=== PATIENT | female | born 1975 | race Caucasian/White ===

== ENCOUNTER 2024-08-03 13:37 | Inpatient (IN) | payer BC, SELFPAY ==
[2024-08-03] VITALS (9 sets, daily range): BP systolic 98–144; BP diastolic 63–96; BMI 33.9
[2024-08-03 08:12] LABS: % Basophils 0.1 % (0-2); % Immature Granulocytes 0.4 % (0-0.5); % Lymphocytes 9.3 % (20.5-51.1); % Monocytes 3.9 % (1.7-9.3); % Neutrophils 86.3 % (42.2-75.2); Absolute Monocytes 0.4 10^3/uL (0.1-0.6); Absolute Neutrophils 9.7 10^3/uL (1.4-6.5); Hematocrit 40.7 % (37.0-47.0); Hemoglobin 12.9 g/dL (12.0-16.0); Mean Corp Hgb Conc. 31.7 g/dL (33.0-37.0); Mean Corpuscular Hgb 26.4 pg (27.0-31.0); Mean Corpuscular Volume 83.2 fL (81.0-99.0); Mean Platelet Volume 12.1 fL (7.4-10.4); Nucleated Red Blood Cells % 0 %; Platelet Count 259 10^3/uL (130-400); Red Blood Cell Count 4.89 10^6/uL (4.20-5.40); Red Cell Dist. Width 14.9 % (11.5-14.5); White Blood Cell Count 11.2 10^3/uL (4.8-10.8)
[2024-08-03 08:20] LABS: HCG, Serum Qualitative Screen Negative
[2024-08-03 08:23] LABS: ALT (SGPT) 22 U/L (0-35); AST (SGOT) 25 U/L (14-36); Alkaline Phosphatase 85 U/L (38-126); Blood Urea Nitrogen 14 mg/dl (7-17); Calcium 10.1 mg/dl (8.4-10.2); Carbon Dioxide 23 mmol/L (22-30); Chloride 105 mmol/L (98-107); Glucose 134 mg/dl (70-99); Lipase 124 U/L (23-300); Potassium 4.2 mmol/L (3.5-5.1); Sodium 142 mmol/L (135-145); Total Bilirubin 0.7 mg/dl (0.2-1.3); Total Protein 8.2 g/dl (6.3-8.2); eGFR > 60.00
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
[2024-08-03] MEDS: NSS 1000 IV ×2 (10:47→17:24)
[2024-08-03] MEDS: MAALOX 40 PO (10:54)
[2024-08-03] MEDS: ZOFRAN 4 MG IV (10:54)
[2024-08-03 11:20] LABS: Urine Albumin 1+ (Neg - Trace); Urine Bilirubin 1+ (Negative); Urine Character Clear (Clear); Urine Color Amber; Urine Glucose Negative (Negative); Urine Ketone 2+ (Negative); Urine Leukocyte Trace (Negative); Urine Nitrite Negative (Negative); Urine Occult Blood Negative (Negative); Urine Specific Gravity 1.015 (<1.030); Urine Urobilinogen 3+ (Neg - 1+); Urine pH 6.5 (5.0-9.0)
[2024-08-03 11:37] LABS: Urine Mucus Moderate
[2024-08-03 11:38] LABS: Urine Bacteria Few (Negative); Urine Red Blood Cell 0-2 /HPF (0-2)
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
[2024-08-03] MEDS: HEPARIN 5000 UNITS SC (20:18)
[2024-08-04] MEDS: NSS 1000 IV (02:51)
[2024-08-04 07:00] VITALS: BP 97/62
[2024-08-04] MEDS: NSS (PRESERVATIVE FREE) 10 ML IV (07:47)
[2024-08-04] MEDS: PROTONIX IV 40 MG IV (07:48)
[2024-08-04] MEDS: HEPARIN 5000 UNITS SC (07:48)
[2024-08-04 09:03] LABS: % Basophils 0.3 % (0-2); % Eosinophils 0.9 % (0-6); % Immature Granulocytes 0.2 % (0-0.5); % Lymphocytes 34.5 % (20.5-51.1); % Neutrophils 57.1 % (42.2-75.2); Absolute Eosinophils 0.1 10^3/uL (0-0.7); Absolute Monocytes 0.4 10^3/uL (0.1-0.6); Absolute Neutrophils 3.3 10^3/uL (1.4-6.5); Hematocrit 33.3 % (37.0-47.0); Hemoglobin 10.6 g/dL (12.0-16.0); Mean Corp Hgb Conc. 31.8 g/dL (33.0-37.0); Mean Corpuscular Volume 84.7 fL (81.0-99.0); Mean Platelet Volume 12.4 fL (7.4-10.4); Nucleated Red Blood Cells % 0 %; Platelet Count 184 10^3/uL (130-400); Red Blood Cell Count 3.93 10^6/uL (4.20-5.40); White Blood Cell Count 5.8 10^3/uL (4.8-10.8)
[2024-08-04 09:56] LABS: ALT (SGPT) 18 U/L (0-35); AST (SGOT) 23 U/L (14-36); Albumin 3.8 g/dl (3.5-5.0); Alkaline Phosphatase 63 U/L (38-126); Blood Urea Nitrogen 17 mg/dl (7-17); Calcium 8.5 mg/dl (8.4-10.2); Carbon Dioxide 19 mmol/L (22-30); Chloride 111 mmol/L (98-107); Estimated Creatinine Clearance 98 ml/min; Glucose 88 mg/dl (70-99); Potassium 3.9 mmol/L (3.5-5.1); Sodium 144 mmol/L (135-145); Total Bilirubin 0.7 mg/dl (0.2-1.3); Total Protein 6.3 g/dl (6.3-8.2); eGFR > 60.00
--- NOTE | 2024-08-04 11:09 | CM ---
Patient seen bedside.
IA completed. Patient lives with spouse in a 2 story home.
Independent prior to admission without assistive devices.
Patient drives and works.
Patient with no hx of VN
Denies home care needs at this time.
PCP: Dr Live
Pharmacy: [facility]
plan: home no needs, spouse will transport.
--- NOTE | 2024-08-04 11:30 | W.PN.HOSP.TC ---
Today's Communication/Plan
-
Consider starting clear liquid
Assessment / Plan
Assessment / Plan
Assessment/plan
Small bowel obstruction likely from adhesions from prior abdominal surgeries
History of exploratory laparotomy times 10/20/1984, laparoscopic cholecystectom
-CT abdomen pelvis shows small bowel obstruction with transition point in the right abdomen. There is mesenteric edema as well as small to moderate amount of free fluid within the inferior pelvis likely transition of fluid
-Current n.p.o.
-IV fluids
-Zofran, Dilaudid
-General surgery input appreciated
08/04
Patient had a bowel movement
Consider starting.
GERD/hiatal hernia
-Continue PPI IV daily
CODE STATUS: Full code
DVT prophylaxis: Heparin
Diet: NPO, could start clear liquid if ok with surgery.
I spent 65 minutes giving direct care to the patient including chart review, talking to consultants, talking to treatment team, family communication.
Anticipated Discharge: Within 24 hours
Subjective/Interval History
-
Date of Service: August 04, 2024
Patient seen and examined at bedside, denies any chest pain or shortness of breath, no abdominal pain, no nausea, no vomiting, no diarrhea or constipation.
Patient had bowel movement
Objective Data
-
Labs:
Laboratory Results
08/04/24
08:20
WBC 5.8
Hgb 10.6 L
Hct 33.3 L
Plt Count 184 D
Sodium 144
Potassium 3.9
Chloride 111 H
Carbon Dioxide 19 L
BUN 17
Creatinine 0.8
Glucose 88
Calcium 8.5 D
Total Bilirubin 0.7
AST 23
ALT 18
Alkaline Phosphatase 63
Vital Signs:
Vital Signs
Temp Pulse Resp BP Pulse Ox
97.8 F 61 12 97/62 100
08/04/24 07:00 08/04/24 07:00 08/04/24 07:00 08/04/24 07:00 08/04/24 07:50
I&O
08/03/24 08/04/24 08/05/24
06:59 06:59 06:59
Intake Total 1200 / 1200
Balance 1200 / 1200
Physical Exam
-
General: Well Developed, Well Nourished, No Apparent Distress and Comfortable
HEENT: Normocephalic, Atraumatic, Moist Mucous Membranes, No Ptosis, PERRLA and Nose Appears Normal
Respiratory: Clear to Auscultation and Non Labored Respirations
Cardiac: Regular Rhythm and S1/S2
Breast: Deferred by me
GI: Soft, Nontender, Nondistended and Normal Bowel Sounds
Genito-urinary: No Costovertebral Tender
Musculoskeletal: No Clubbing, No Cyanosis and No Edema
Skin: Warm
Neuro: Awake, Alert, Oriented, AO x 3 and No Motor Deficits
Psych: Calm
Data Reviewed
-
Diagnostic Radiology: Image personally visualized and interpreted and Report Reviewed by me
CT Scan: Image personally visualized and interpreted and Report Reviewed by me
Ultrasound: Image personally visualized and interpreted and Report Reviewed by me
MRI: Image personally visualized and interpreted and Report Reviewed by me
Medical Tests (Nuc Med, Echo etc): Image personally visualized and interpreted and Report Reviewed by me
Labs: Labs Reviewed by me
Old Records: Reviewed
--- NOTE | 2024-08-04 13:26 | W.DCSUMMARY ---
Discharge Summary
Discharge Data
Date of Admission: 08/03/24
Date of Discharge: 08/04/24
-
Pending Results: No
Hospital Course
Admitted with small bowel obstruction
Small bowel obstruction likely from adhesions from prior abdominal surgeries
History of exploratory laparotomy times 10/20/1984, laparoscopic cholecystectomy
-CT abdomen pelvis shows small bowel obstruction with transition point in the right abdomen. There is mesenteric edema as well as small to moderate amount of free fluid within the inferior pelvis likely transition of fluid
-Current n.p.o.
-IV fluids
-Zofran, Dilaudid
-General surgery input appreciated
08/04
Patient had a bowel movement
Consider starting.
GERD/hiatal hernia
-Continue PPI IV daily
CODE STATUS: Full code
DVT prophylaxis: Heparin
Diet: NPO, could start clear liquid if ok with surgery.
Discharge Plan
-
Patient Disposition: Home (Routine Discharge)
Discharge Diagnosis/Procedures: Small bowel obstruction
Condition: Good
Diet: As tolerated, Low Fiber and Low Residue
Activity: No restrictions
Driving Restrictions: As prior to admission
Referrals:
Radha Live CRNP [Family Provider] -
Kalyan Mack MD [Active] - in one to two weeks
Prescriptions:
Continued
norethindrone-e.estradiol-iron [Loestrin Fe 1.5/30 (28-Day)] 1.5 mg-30 mcg (21)/75 mg (7) Tablet
1 tab PO DAILY
omeprazole magnesium [Prilosec OTC] 20 mg Tablet,Delayed Release (Dr/Ec)
20 mg PO DAILY
multivitamin Tablet
1 tab PO DAILY
Discharge Orders:
Discharge Patient (As Directed); Ordered 08/04/24
Ordered By: Christina Post
Discharge Date and Time
Print Language: TAMAZIGHT
--- NOTE | 2024-08-04 13:45 | W.PN.GS2 ---
Today's Communication / Plan
-
ADAT to LRD and DC home when tolerating
Assessment / Plan
-
49F with resolving pSBO
Clinically improived, pain free, passed a BM, hungry
Labs unremarkable
KUB today with non obstructive bowel gas pattern
Plan:
Trial cld for lunch
If cary, adv to [facility] for dinner and DC home when cary
All other care as per primary team
Pls call with ?s
Subjective Data
-
Date of Service: August 04, 2024
AFVSS, denies n/v, passed a BM, feels back to baseline
Objective Data
-
Intake and Output
08/03/24 08/04/24 08/05/24
06:59 06:59 06:59
Intake Total 1200 / 1200
Balance 1200 / 1200
Intake:
Oral fluids 0 / 0
IV fluids (Total) 1200 / 1200
IV piggybacks 0 / 0
Other:
Number of approximated MODERATE 2
amounts of urine
Vital Signs
Temp Pulse Resp BP Pulse Ox
97.8 F 61 12 97/62 100
08/04/24 07:00 08/04/24 07:00 08/04/24 07:00 08/04/24 07:00 08/04/24 07:50
Lab Results
08/04/24 08:20
08/04/24 08:20
Calcium 8.5 mg/dl (8.4-10.2) D 08/04/24 08:20
Total Bilirubin 0.7 mg/dl (0.2-1.3) 08/04/24 08:20
AST 23 U/L (14-36) 08/04/24 08:20
ALT 18 U/L (0-35) 08/04/24 08:20
Alkaline Phosphatase 63 U/L (38-126) 08/04/24 08:20
Total Protein 6.3 g/dl (6.3-8.2) D 08/04/24 08:20
Albumin 3.8 g/dl (3.5-5.0) 08/04/24 08:20
Physical Exam
-
Gen: NAD
Abd: soft, nd, very mild diffuse ttp
[2024-08-04 15:00] VITALS: BP 114/64
[2024-08-04] MEDS: NSS IV (15:46)
--- NOTE | 2024-08-04 18:36 | PTCARENOTE ---
pt tolerated low residue diet. in agreement with D/C. D/C order in, reviewed instructions, removed IV
== END 2024-08-04 19:37 | disposition home or self-care (01) | DRG 390 ==
LOC: 1 ACUTE 13:37
PROVIDERS: Physician Assistant; ADMITTING PHYSICIAN Hospitalist; ATTENDING PHYSICIAN General Practice; CONSULT PHYSICIAN Surgery; EMERGENCY PHYSICIAN Emergency Medicine; FAMILY PHYSICIAN Nurse Practitioner
DX: K56.50 Intestinal adhesions [bands], unspecified as to partial versus complete obstruction (principal); Z90.49 Acquired absence of other specified parts of digestive tract; K21.9 Gastro-esophageal reflux disease without esophagitis; E78.00 Pure hypercholesterolemia, unspecified; E66.9 Obesity, unspecified; Z68.33 Body mass index [BMI] 33.0-33.9, adult
CPT/HCPCS: 74018; 74177; 80053; 81003; 81015; 83690; 84703; 85025; 93005; 96372; 96374; 99285; Q9967